=== PATIENT | female | born 1935 | race Two or more races ===

== ENCOUNTER 2019-04-15 10:21 | Emergency (ER) | payer MEDICARE, OTHER ==
--- NOTE | 2019-04-15 10:47 | ER Document Report ---
ED Medical Screen (RME) - General Chief Complaint: Blood Pressure Problem Stated Complaint: BLOOD PRESSURE CONCERNS Time Seen by Provider: 04/15/19 10:35 Primary Care Provider: HONG HERNANDEZ MD [Primary Care Provider] - Follow up as needed Notes: 84-year-old female with liver cancer diagnosed in May 2012 presents to the emergency department for elevated blood pressure readings, memory issues, and difficulty with fine motor movements after starting the medication Lenvima on March 24. She is under the care of Dr. Chairez. Patient states that her blood pressure readings have been occasionally triple over triple. States that she sometimes forgets numbers as simple as the need to call 911 but it is intermittent. States that she has difficulty picking up pencils or holding her cell phone. Denies any acute confusion, denies any chest pain or shortness of breath, denies any severe intractable headaches, denies any anuria. Exam: Well-appearing in no acute distress, speaking in full sentences. Regular cardiac rate and rhythm S1-S2 heard, lungs clear to auscultation all gracia. I have greeted and performed a rapid initial assessment of this patient. A comprehensive ED assessment and evaluation of the patient, analysis of test results and completion of medical decision making process will be conducted by an additional ED providers. - Related Data Allergies/Adverse Reactions: No Known Allergies Allergy (Unverified 09/02/12 14:35) Past Medical History - Past Medical History Cardiac Medical History: Reports: Hx Hypertension - MEDICATED Denies: Hx Heart Attack Pulmonary Medical History: Denies: Hx Asthma Neurological Medical History: Denies: Hx Cerebrovascular Accident, Hx Seizures GI Medical History: Reports: Hx Hepatitis - HEP C. Denies: Hx Hiatal Hernia, Hx Ulcer Infectious Medical History: Reports: Hx Hepatitis - HEP C Past Surgical History: Reports: Hx Hysterectomy. Denies: Hx Mastectomy, Hx Open Heart Surgery, Hx Pacemaker Physical Exam - Vital signs Vitals: Pulse Resp BP Pulse Ox 70 18 227/99 H 94 04/15/19 10:36 04/15/19 10:36 04/15/19 10:36 04/15/19 10:36 Course - Vital Signs Vital signs: Temp Pulse Resp BP Pulse Ox 70 18 227/99 H 94 04/15/19 10:36 04/15/19 10:36 04/15/19 10:36 04/15/19 10:36 Doctor's Discharge - Discharge Referrals: HONG HERNANDEZ MD [Primary Care Provider] - Follow up as needed
[2019-04-15 11:33] LABS: ABSOLUTE LYMPHOCYTES (AUTO) 1.3 10^3/uL (0.5-4.7); ABSOLUTE MONOCYTES (AUTO) 0.6 10^3/uL (0.1-1.4); ABSOLUTE NEUT (AUTO) 6.8 10^3/uL (1.7-8.2); BASOPHILS % (AUTO) 0.3 % (0-2); HEMOGLOBIN 15.6 g/dL (12.0-15.5); LYMPHOCYTES % (AUTO) 14.4 % (13-45); MEAN CORPUSCULAR HEMOGLOBIN 34.2 pg (27.0-33.4); MEAN CORPUSCULAR HGB CONC 35.4 g/dL (32.0-36.0); MEAN CORPUSCULAR VOLUME 97 fl (80-97); MONOCYTES % (AUTO) 7.4 % (3-13); RED BLOOD COUNT 4.55 10^6/uL (3.72-5.28); RED CELL DISTRIBUTION WIDTH 18.4 % (11.5-14.0); SEGMENTED NEUTROPHILS % (AUTO) 77.9 % (42-78); TOTAL CELLS COUNTED % (AUTO) 100 %; WHITE BLOOD COUNT 8.7 10^3/uL (4.0-10.5)
[2019-04-15 11:40] LABS: INTERNATIONAL RATION (INR) 1.19; PROTHROMBIN TIME 15.2 SEC (11.4-15.4)
[2019-04-15 11:44] LABS: APPEARANCE,URINE SLIGHTLY-CLOUDY; BILIRUBIN,URINE NEGATIVE (NEGATIVE); COLOR,URINE AMBER; GLUCOSE, URINE 50 mg/dL (NEGATIVE); KETONES,URINE NEGATIVE (NEGATIVE); LEUKOCYTE ESTERASE,URINE NEGATIVE (NEGATIVE); NITRITE,URINE NEGATIVE (NEGATIVE); PROTEIN,URINE >=500 mg/dL (NEGATIVE); URINE SPECIFIC GRAVITY 1.019
[2019-04-15 11:53] LABS: ALBUMIN 2.5 g/dL (3.5-5.0); ALKALINE PHOSPHATASE 205 U/L (38-126); ANION GAP 6 (5-19); ASPARTATE AMINO TRANSFERASE 114 U/L (14-36); BILIRUBIN,DIRECT 1.7 mg/dL (0.0-0.4); BILIRUBIN,TOTAL 4.5 mg/dL (0.2-1.3); BLOOD UREA NITROGEN 48 mg/dL (7-20); CALCIUM 8.8 mg/dL (8.4-10.2); CARBON DIOXIDE 29 mmol/L (22-30); CHLORIDE 108 mmol/L (98-107); GLUCOSE 106 mg/dL (75-110); POTASSIUM 3.2 mmol/L (3.6-5.0); TOTAL PROTEIN 5.9 g/dL (6.3-8.2)
--- NOTE | 2019-04-15 12:09 | RADIOLOGY REPORT (SQ) ---
EXAM DESCRIPTION: CT HEAD WITHOUT COMPLETED DATE/TIME: 04/15/2019 11:58 am REASON FOR STUDY: slurred speech COMPARISON: None. TECHNIQUE: Axial images acquired through the brain without intravenous contrast. Images reviewed wi th bone, brain and subdural windows. Additional sagittal and coronal reconstructions were generated. Images stored on PACS. All CT scanners at this facility use dose modulation, iterative reconstruction, and/or weight based d osing when appropriate to reduce radiation dose to as low as reasonably achievable (ALARA). [facility]: Dose Right [facility]: CareDose [facility]: Dose Right [facility]: Teradose 4D [facility]: [employer] RADIATION DOSE: CT Rad equipment meets quality standard of care and radiation dose reduction techniq ues were employed. CTDIvol: 53.2 mGy. DLP: 1070 mGy-cm. mGy. LIMITATIONS: None. FINDINGS: VENTRICLES: Normal size and contour. CEREBRUM: No masses. No hemorrhage. No midline shift. No evidence for acute infarction. Normal gra y/white matter differentiation. No areas of low density in the white matter. CEREBELLUM: No masses. No hemorrhage. No alteration of density. No evidence for acute infarction. EXTRAAXIAL SPACES: No fluid collections. No masses. ORBITS AND GLOBE: No intra- or extraconal masses. Normal contour of globe without masses. CALVARIUM: No fracture. PARANASAL SINUSES: Mucous retention cyst in the left maxillary sinus. SOFT TISSUES: No mass or hematoma. OTHER: No other significant finding. IMPRESSION: Left maxillary sinus disease with no acute intracranial imaging finding. EVIDENCE OF ACUTE STROKE: NO. COMMENT: Quality ID # [id number]: Final reports with documentation of one or more dose reduction techniques (e.g., Automated exposure control, adjustment of the mA and/or kV according to patient size, use of iterative reconstruction technique) TECHNICAL DOCUMENTATION: JOB ID: [id number] [employer]- All Rights Reserved Reading location - IP/workstation name: [email or web address]
[2019-04-15 12:44] LABS: PLATELET COUNT 53 10^3/uL (150-450)
[2019-04-15] MEDS ORDERED: POTASSIUM CHLORIDE 10 MEQ CAPSULE.ER PO ONE (12:55)
[2019-04-15] MEDS ORDERED: NORMAL SALINE 1000 ML 1,000 ML IV ONE (13:02)
--- NOTE | 2019-04-15 13:03 | ER Document Report ---
ED General - General Chief Complaint: High Blood Pressure Stated Complaint: BLOOD PRESSURE CONCERNS Time Seen by Provider: 04/15/19 10:35 Primary Care Provider: HONG HERNANDEZ MD [Primary Care Provider] - Follow up as needed - [facility] Notes: Patient is an 84-year-old female with a history of hypertension and liver cancer that was diagnosed in 2011, currently on Chemo/Lenvima since Mar 24 (under care of Dr. Gallagher) who presents with family because her blood pressure has been elevated for the past month and a half since starting the medicine. She did see her family doctor 2 days ago and he did put in for a new blood pressure medicine, but it is a mail order so they have not started it yet and do not know what it is. They are scheduled to see him again in the morning. Family states that they wanted to bring her in because her systolic blood pressure was over 200. She is otherwise acting and behaving normally. She is able to eat and drink without difficulty. She is urinating normally and having normal bowel movements. No recent illness. Patient states that she has had chronic issues with blood pressure, occasional memory issues, and sometimes weakness to her hands bilaterally. This is not something that just occurred and patient states that she will have good days and bad days. Denies any headache, fever, head injury, neck pain, changes in vision/speech/mentation/hearing, URI, sore throat, chest pain, palpitations, syncope, cough, shortness of breath, wheeze, dyspnea, abdominal pain, nausea/vomiting/diarrhea, urinary retention, dysuria, hematuria, loss of control of bowel or bladder, numbness/tingling, saddle anesthesia, muscle paralysis, or rash. - Related Data Allergies/Adverse Reactions: No Known Allergies Allergy (Unverified 09/02/12 14:35) Home Medications: Lenvima. Losartan 50mg. amlodipine 5mg. milk thistle. timolol maleate opthalmic solution. latanoprost eye solution. cholecalciferol 1000 unit. justin 180mg. K-dur 20meq daily Past Medical History - Social History Smoking Status: Never Smoker Frequency of alcohol use: None Drug Abuse: None Family History: Reviewed & Not Pertinent Patient has suicidal ideation: No Patient has homicidal ideation: No - Past Medical History Cardiac Medical History: Reports: Hx Hypertension - MEDICATED Denies: Hx Heart Attack Pulmonary Medical History: Denies: Hx Asthma Neurological Medical History: Denies: Hx Cerebrovascular Accident, Hx Seizures GI Medical History: Reports: Hx Hepatitis - HEP C. Denies: Hx Hiatal Hernia, Hx Ulcer Infectious Medical History: Reports: Hx Hepatitis - HEP C Past Surgical History: Reports: Hx Cholecystectomy, Hx Hysterectomy. Denies: Hx Mastectomy, Hx Open Heart Surgery, Hx Pacemaker Review of Systems - Review of Systems -: Yes All other systems reviewed and negative Physical Exam - Vital signs Vitals: Pulse Resp BP Pulse Ox 70 18 227/99 H 94 04/15/19 10:36 04/15/19 10:36 04/15/19 10:36 04/15/19 10:36 - Notes Notes: PHYSICAL EXAMINATION: GENERAL: Well-appearing, well-nourished and in no acute distress. A&Ox4. Answers questions appropriately. HEAD: Atraumatic, normocephalic. Non-tender. EYES: Pupils equal round and reactive to light, extraocular movements intact, sclera anicteric, conjunctiva are normal. No nystagmus. ENT: Nares patent and without discharge. oropharynx clear without exudates. No tonsilar hypertrophy or erythema. Moist mucous membranes. NECK: Normal range of motion, supple without lymphadenopathy. No rigidity/meningismus. No midline tenderness. LUNGS: Breath sounds clear to auscultation bilaterally and equal. No wheezes rales or rhonchi. HEART: Regular rate and rhythm without murmurs, rubs, gallops. ABDOMEN: Soft, nontender, nondistended abdomen. No guarding, no rebound. Normal bowel sounds present. No CVA tenderness bilaterally. Musculoskeletal: Ext b/l: FROM to passive/active. Strength 5+/5. No deficits noted. No bony tenderness of extremities. Extremities: trace pitting edema b/l LE's. No calf tenderness or LE asymmetry. Peripheral pulses 2+. Capillary refill less than 2 seconds. NEUROLOGICAL: NIH 0. GCS 15. Cranial nerves grossly intact. Normal speech, normal gait. Normal sensory, motor exams. Reflexes 2+ b/l. RICARDO's negative. Pronator drift negative. Heel/marshall, finger/nose wnl. Face symmetric. PSYCH: Normal mood, normal affect. SKIN: Warm, Dry, normal turgor, no rashes or lesions noted. Course - Re-evaluation Re-evalutation: 04/15/19 13:03 I did speak briefly with Dr. Gallagher who will send over recent labs/note from their office. 04/15/19 14:30 I did review with Dr. Lowery and went over lab results compared to previous (labs will be scanned in upon discharge). He recommends fluids/hydration to improve renal function as she is dry and keep f/u tomorrow with PCM. No US needed with h/o cholecystectomy and near-baseline labs. Patient is an afebrile, well-hydrated, 84-year-old female who presents with otherwise a symptomatic hypertension and mild dehydration. Vitals are acceptable without significant tachycardia, tachypnea, or hypoxia. PE is otherwise unremarkable without focal neurological deficits. Patient is nontoxic-appearing and is tolerating p.o. without difficulty. Patient is currently asymptomatic otherwise and would like to go home. Imaging unremarka ble. Urine culture is pending as patient is otherwise asymptomatic with urination. Case was reviewed with the family and patient as well as all questions answered. No further work-up warranted at this time. Low suspicion for any sepsis, meningitis, severe dehydration, respiratory compromise, hyp ertensive emergency, acute intracranial pathology, or other systemic emergent condition at this time. Mother is aware that condition can change from initial presentation and she needs to monitor symptoms closely and seek medical attention with any acute changes. Keep appointment tomorrow with your PCM. Return to the ED with any other worsening/concerning symptoms. Patient and family in agreement. - Vital Signs Vital signs: Temp Pulse Resp BP Pulse Ox 98.0 F 70 17 184/72 H 97 04/15/19 11:20 04/15/19 11:35 04/15/19 14:01 04/15/19 14:01 04/15/19 14:01 - Laboratory Result Diagrams: 04/15/19 11:08 04/15/19 11:08 Laboratory results interpreted by me: 04/15/19 04/15/19 04/15/19 11:08 11:08 11:23 Hgb 15.6 H MCH 34.2 H RDW 18.4 H Plt Count 53 L Potassium 3.2 L Chloride 108 H BUN 48 H Creatinine 1.46 H Est GFR ( Amer) 41 L Est GFR (MDRD) Non-Af 34 L Total Bilirubin 4.5 H Direct Bilirubin 1.7 H AST 114 H Alkaline Phosphatase 205 H Total Protein 5.9 L Albumin 2.5 L Urine Protein >=500 H Urine Glucose (UA) 50 H Urine Blood LARGE H Urine Urobilinogen 4.0 H Discharge - Discharge Clinical Impression: Elevated blood pressure reading, Mild dehydration Condition: Stable Disposition: HOME, SELF-CARE Additional Instructions: Maintain adequate fluid and food intake Take home medications as directed Low sodium/fat diet Monitor blood pressure daily and keep a log Monitor symptoms for any acute changes Recheck with your PCM as scheduled tomorrow Consider a follow-up with cardiology Return to the ED with any worsening symptoms and/or development of fever, headache, changes in behavior/mentation/vision/speech, chest pain, palpitations, syncope, shortness of breath, trouble breathing, abdominal pain, n/v/d, blood in stool/urine, loss of control of bowel/bladder, urinary retention, muscle weak ness/paralysis, saddle anesthesia, numbness/tingling, or other worsening symptoms that are concerning to you. Forms: Elevated Blood Pressure Referrals: HONG HERNANDEZ MD [Primary Care Provider] - Follow up tomorrow
[2019-04-15] MEDS: CLONIDINE HCL 0.1 MG TABLET PO ONE ×2 (13:10→13:20)
[2019-04-15] MEDS ORDERED: CLONIDINE HCL 0.1 MG TABLET PO ONE (13:16)
[2019-04-15] MEDS ORDERED: NORMAL SALINE 500 ML IV ONE (14:29)
[2019-04-15 15:16] VITALS: BP 197/82
--- NOTE | 2019-04-15 20:15 | EKG REPORT ---
SEVERITY:- ABNORMAL ECG - SINUS RHYTHM LEFT VENTRICULAR HYPERTROPHY PROLONGED QT INTERVAL : Confirmed by: Yen Batista MD 15-Apr-2019 20:14:18
== END 2019-04-15 15:16 | disposition home or self-care (01) ==
LOC: ER 10:21
DX: I10 Essential (primary) hypertension (principal); E86.0 Dehydration; R53.1 Weakness; R60.0 Localized edema; C22.8 Malignant neoplasm of liver, primary, unspecified as to type; Z79.899 Other long term (current) drug therapy
CPT/HCPCS: 93005; 36415; 85025; 85610; 80053; 81001; 70450; 93010; A9270 ×2; J7030; J7040; 87086